=== PATIENT | male | born 1950 | race Caucasian/White ===

== ENCOUNTER 2016-08-17 08:51 | Emergency (ER) | payer MEDICARE, OTHER ==
[~2016-08-17] VITALS: Ht 167.6 cm; Wt 51.3 kg
[2016-08-17 08:54] VITALS: BP 141/79
== END 2016-08-17 09:17 | disposition home or self-care (01) ==
LOC: EDUNIT# 08:51 → ER 08:53
DX: J06.9 Acute upper respiratory infection, unspecified (principal); Z98.890 Other specified postprocedural states
CPT/HCPCS: 99281; A4606; Z7502; Z7610